=== PATIENT | male | born 1960 ===

== ENCOUNTER 2021-02-11 12:36 | Emergency (ER) | payer OTHER ==
[2021-02-11 13:52] VITALS: BP 135/90
--- NOTE | 2021-02-11 15:58 | XRay Report ---
CHEST 2 VIEWS INDICATION / CLINICAL INFORMATION: SOB. COMPARISON: None available. FINDINGS: SUPPORT DEVICES: None. HEART / MEDIASTINUM: No significant abnormality. LUNGS / PLEURA: Mild patchy bibasilar pulmonary opacities are noted. No pleural effusion. No pneumoth orax. ADDITIONAL FINDINGS: No significant additional findings. IMPRESSION: 1. Patchy bibasilar pulmonary opacities consistent with provided history of viral versus atypical pne umonia. Signer Name: Moise Jackson MD Signed: 02/11/2021 3:53 PM Workstation Name: [id number]
[2021-02-11 16:35] LABS: Basophils % (Auto) 0.4 % (0.0-1.8); Eosinophils % (Auto) 0.1 % (0.0-4.3); Hematocrit 43.6 % (35.5-45.6); Hemoglobin 14.3 gm/dl (11.8-15.2); Lymphocytes # (Auto) 0.6 K/mm3 (1.2-5.4); Lymphocytes % (Auto) 14.3 % (13.4-35.0); Mean Corpuscular HGB Conc 33 % (32-34); Mean Corpuscular Volume 84 fl (84-94); Monocytes # (Auto) 0.3 K/mm3 (0.0-0.8); Monocytes % (Auto) 6.8 % (0.0-7.3); Platelet Count 130 K/mm3 (140-440); Red Blood Count 5.22 M/mm3 (3.65-5.03); Red Cell Distribution Width 15.8 % (13.2-15.2)
[2021-02-11 16:57] LABS: Alanine Aminotransferase 23 units/L (7-56); Albumin 4.2 g/dL (3.9-5); BUN/Creatinine Ratio 13; Blood Urea Nitrogen 15 mg/dL (9-20); Calcium 8.6 mg/dL (8.4-10.2); Hemolysis Index 14
--- NOTE | 2021-02-11 18:02 | Emergency Department Report ---
ED Shortness of Breath HPI - General Chief Complaint: Dyspnea/Respdistress Stated Complaint: COVID SYMPTOMS/SOB Time Seen by Provider: 02/11/21 15:21 Source: patient Mode of arrival: Ambulatory Limitations: No Limitations - History of Present Illness Initial Comments: Patient is a 60-year-old male presents emergency room complains of shortness of breath that began 5 days ago. Patient states that he tested positive for COVID- 19 yesterday. He has associated dry cough and occasional vomiting. He states he had a subjective fever at home but has not taken anything for fever. He is able to tolerate p.o. intake including water. He denies any abdominal pain, chest pain, sore throat, ear pain. Past medical history of hypertension. No allergies to medications. He is a non-smoker. He denies any known sick contacts or recent travel. - Related Data Previous Rx's Medication Instructions Recorded Last Taken Type Albuterol Sulfate [Proventil Hfa] 1 puff IH TID PRN #1 hfa.aer.ad 02/11/21 Unknown Rx Azithromycin [Zithromax TAB] 250 mg PO QDAY 5 Days #6 tablet 02/11/21 Unknown Rx Benzonatate [Tessalon Perles] 100 mg PO Q8HR PRN #10 capsule 02/11/21 Unknown Rx Prednisone [predniSONE 10 mg 10 mg PO .TAPER #1 tab.ds.pk 02/11/21 Unknown Rx (6-Day Pack, 21 Tabs)] ED Review of Systems ROS: Stated complaint: COVID SYMPTOMS/SOB Other details as noted in HPI Comment: All other systems reviewed and negative ED Past Medical Hx - Past Medical History Previous Medical History?: Yes Hx Hypertension: Yes - Surgical History Past Surgical History?: No - Medications Home Medications: Home Medications Medication Instructions Recorded Confirmed Last Taken Type Albuterol Sulfate [Proventil Hfa] 1 puff IH TID PRN #1 hfa.aer.ad 02/11/21 Unknown Rx Azithromycin [Zithromax TAB] 250 mg PO QDAY 5 Days #6 tablet 02/11/21 Unknown Rx Benzonatate [Tessalon Perles] 100 mg PO Q8HR PRN #10 capsule 02/11/21 Unknown Rx Prednisone [predniSONE 10 mg 10 mg PO .TAPER #1 tab.ds.pk 02/11/21 Unknown Rx (6-Day Pack, 21 Tabs)] ED Physical Exam - General Limitations: No Limitations General appearance: alert, in no apparent distress - Head Head exam: Present: atraumatic, normocephalic - Eye Eye exam: Present: normal appearance - ENT ENT exam: Present: mucous membranes moist - Respiratory Respiratory exam: Present: normal lung sounds bilaterally. Absent: respiratory distress, wheezes, rales, rhonchi, stridor, chest wall tenderness, accessory muscle use, decreased breath sounds, prolonged expiratory - Cardiovascular Cardiovascular Exam: Present: regular rate, normal rhythm, normal heart sounds. Absent: systolic murmur, diastolic murmur, rubs, gallop - Neurological Exam Neurological exam: Present: alert, oriented X3 - Psychiatric Psychiatric exam: Present: normal affect, normal mood - Skin Skin exam: Present: warm, dry, intact ED Course Vital Signs 02/11/21 02/11/21 13:50 15:27 Temperature 98.0 F Pulse Rate 94 H 80 Respiratory 20 Rate Blood Pressure 135/90 [Right] O2 Sat by Pulse 94 96 Oximetry ED Medical Decision Making - Lab Data Result diagrams: 02/11/21 15:51 02/11/21 15:51 Lab Results 02/11/21 02/11/21 Range/Units 15:51 15:51 WBC 4.5 (4.5-11.0) K/mm3 RBC 5.22 H (3.65-5.03) M/mm3 Hgb 14.3 (11.8-15.2) gm/dl Hct 43.6 (35.5-45.6) % MCV 84 (84-94) fl MCH 27 L (28-32) pg MCHC 33 (32-34) % RDW 15.8 H (13.2-15.2) % Plt Count 130 L (140-440) K/mm3 Lymph % (Auto) 14.3 (13.4-35.0) % [place] % (Auto) 6.8 (0.0-7.3) % Eos % (Auto) 0.1 (0.0-4.3) % Baso % (Auto) 0.4 (0.0-1.8) % Lymph # (Auto) 0.6 L (1.2-5.4) K/mm3 [place] # (Auto) 0.3 (0.0-0.8) K/mm3 Eos # (Auto) 0.0 (0.0-0.4) K/mm3 Baso # (Auto) 0.0 (0.0-0.1) K/mm3 Seg Neutrophils % 78.4 H (40.0-70.0) % Seg Neutrophils # 3.5 (1.8-7.7) K/mm3 Sodium 137 (137-145) mmol/L Potassium 4.0 (3.6-5.0) mmol/L Chloride 98.5 (98-107) mmol/L Carbon Dioxide 26 (22-30) mmol/L Anion Gap 17 mmol/L BUN 15 (9-20) mg/dL Creatinine 1.2 (0.8-1.3) mg/dL Estimated GFR > 60 ml/min BUN/Creatinine Ratio 13 % Glucose 119 H (75-100) mg/dL Calcium 8.6 (8.4-10.2) mg/dL Total Bilirubin 0.50 (0.1-1.2) mg/dL AST 25 (5-40) units/L ALT 23 (7-56) units/L Alkaline Phosphatase 69 (35-129) units/L Total Protein 8.1 (6.3-8.2) g/dL Albumin 4.2 (3.9-5) g/dL Albumin/Globulin Ratio 1.1 % Vital Signs 02/11/21 02/11/21 13:50 15:27 Temperature 98.0 F Pulse Rate 94 H 80 Respiratory 20 Rate Blood Pressure 135/90 [Right] O2 Sat by Pulse 94 96 Oximetry - Radiology Data Radiology results: report reviewed Ordering Physician: YANNA LOPEZ Date of Service: 02/11/21 Procedure(s): XR chest routine 2V Accession Number(s): [id number] cc: YANNA LOPEZ Fluoro Time In Minutes: CHEST 2 VIEWS INDICATION / CLINICAL INFORMATION: SOB. COMPARISON: None available. FINDINGS: SUPPORT DEVICES: None. HEART / MEDIASTINUM: No significant abnormality. LUNGS / PLEURA: Mild patchy bibasilar pulmonary opacities are noted. No pleural effusion. No pneumothorax. ADDITIONAL FINDINGS: No significant additional findings. IMPRESSION: 1. Patchy bibasilar pulmonary opacities consistent with provided history of viral versus atypical pneumonia. Signer Name: Joe Claudio MD Signed: 02/11/2021 3:53 PM Workstation Name: [id number] Transcribed By: Dictated By: JOE CLAUDIO Electronically Authenticated By: JOE CLAUDIO Signed Date/Time: 02/11/211552 DD/ 51 TD/TT: - Medical Decision Making Patient is a 60-year-old male presents emergency room complains of shortness of breath that began 5 days ago. Patient states that he tested positive for COVID- 19 yesterday. He has associated dry cough and occasional vomiting. He states he had a subjective fever at home but has not taken anything for fever. He is able to tolerate p.o. intake including water. He denies any abdominal pain, chest pain, sore throat, ear pain. Past medical history of hypertension. No allergies to medications. He is a non-smoker. He denies any known sick contacts or recent travel. Vitals are stable. Patient ambulated in the emergency department by be maintained oxygen sats of 94% to 99% on room air. Labs are stable. Chest x-ray: 1. Patchy bibasilar pulmonary opacities consistent with provided history of viral versus atypical pneumonia. Discussed all results with patient, discussed very strict return precautions in detail with patient, discussed the importance of follow-up. Patient given prescriptions. Advised patient Please take medication as prescribed. Please increase your fluid intake over the next several days. Follow-up with a primary care doctor for reexamination. Return to emergency room immediately for any new or worsening symptoms including but not limited to difficulty breathing, shortness of breath, severe chest pain, unable to tolerate by mouth intake, etc. Please self quarantine for 10 days. from the onset of your symptoms. Please do not go out in public. If you are around others at home please wear a mask. If you need to cough or sneeze please do so in a napkin and immediately throw it away and immediately wash your hands. Wash your hands frequently. Wipe everything down. Recommend for you to buy a pulse oximetry monitor [id number] and if your oxygen is dropping below 92 or 93% please return to emergency room immediately. Critical care attestation.: If time is entered above; I have spent that time in minutes in the direct care of this critically ill patient, excluding procedure time. ED Disposition Clinical Impression: COVID-19, Opacities of both lungs present on chest x-ray Disposition: DC- TO HOME OR SELFCARE Is pt being admited?: No Does the pt Need Aspirin: No Condition: Stable Instructions: COVID-19 Frequently Asked Questions, COVID-19: How to Protect Yourself and Others - CDC, Community-Acquired Pneumonia, Adult, Prevent the Spread of COVID-19 if You Are Sick - [facility] Additional Instructions: Please take medication as prescribed. Please increase your fluid intake over the next several days. Follow-up with a primary care doctor for reexamination. Return to emergency room immediately for any new or worsening symptoms including but not limited to difficulty breathing, shortness of breath, severe chest pain, unable to tolerate by mouth intake, etc. Please self quarantine for 10 days. from the onset of your symptoms. Please do not go out in public. If you are around others at home please wear a mask. If you need to cough or sneeze please do so in a napkin and immediately throw it away and immediately wash your hands. Wash your hands frequently. Wipe everything down. Recommend for you to buy a pulse oximetry monitor [id number] and if your oxygen is dropping below 92 or 93% please return to emergency room immediately. Prescriptions: Prednisone [predniSONE 10 mg (6-Day Pack, 21 Tabs)] 10 mg PO .TAPER #1 tab.ds.pk Albuterol Sulfate [Proventil Hfa] 1 puff IH TID PRN #1 hfa.aer.ad PRN Reason: shortness of breath/wheezing Benzonatate [Tessalon Perles] 100 mg PO Q8HR PRN #10 capsule PRN Reason: cough Azithromycin [Zithromax TAB] 250 mg PO QDAY 5 Days #6 tablet Referrals: PRIMARY CARE, [Primary Care Provider] - 3-5 Days Time of Disposition: 17:58 Print Language: DANISH
== END 2021-02-11 18:10 | disposition home or self-care (01) ==
LOC: ED 12:36
DX: U07.1 COVID-19 (principal); R91.8 Other nonspecific abnormal finding of lung field; I10 Essential (primary) hypertension; Z79.899 Other long term (current) drug therapy
CPT/HCPCS: 36415; 71046; 80053; 85025